=== PATIENT | female | born 1955 | race Caucasian/White ===

== ENCOUNTER → 2017-05-19 | Outpatient (CLI) | payer BC ==
[~2017-05-19] MED LIST: ASPI-496 PO; BIFI4CAP PO; CALC-332 PO; CALC625T23 PO; DIHY1SPR NS; MULT-706 PO; PROM25SU34 PO; TIZA2CAP2 PO; UBID100C41 PO; VITA150T PO
== END | disposition home or self-care (01) ==
LOC: STAR 11:21
PROVIDERS: ATTEND Thoracic Surgery (Cardiothoracic Vascular Surgery)
DX: Z01.818 Encounter for other preprocedural examination (principal); R94.31 Abnormal electrocardiogram [ECG] [EKG]; K44.9 Diaphragmatic hernia without obstruction or gangrene; K21.9 Gastro-esophageal reflux disease without esophagitis; M19.90 Unspecified osteoarthritis, unspecified site
CPT/HCPCS: 93005

== ENCOUNTER 2017-06-08 06:07 | Observation (INO) | payer BC ==
[~2017-06-08] VITALS: Ht 163.8 cm; Wt 79.7 kg
[2017-06-08] MEDS ORDERED: LIDOCAINE 1%, 2ML ONE (06:44)
[2017-06-08] MEDS ORDERED: KETAMINE 10 MG/ML, 20ML ONE (06:57)
[2017-06-08] MEDS ORDERED: MIDAZOLAM 1 MG/ML, 2ML ONE (06:58)
[2017-06-08] MEDS ORDERED: FENTANYL PF 100 MCG/2ML ONE ×4 (06:58→10:14)
[2017-06-08] MEDS ORDERED: PROPOFOL 10 MG/ML, 20ML ONE (06:59)
[2017-06-08] MEDS ORDERED: DEXAMETHASONE 4 MG/ML, 1ML ONE ×2 (07:00)
[2017-06-08] MEDS ORDERED: SUCCINYLCHOLINE 20 MG/ML, 10ML ONE (07:00)
[2017-06-08] MEDS ORDERED: CEFAZOLIN 1,000 MG ONE ×2 (07:00)
[2017-06-08] MEDS ORDERED: ONDANSETRON 2MG/ML, 2ML ONE ×2 (07:00)
[2017-06-08] MEDS ORDERED: ROCURONIUM 10MG/ML,5ML ONE (07:00)
[2017-06-08] MEDS ORDERED: LACTATED RINGERS 1,000 ML IV SCH (07:04)
[2017-06-08] MEDS ORDERED: OXYcodone 5 MG/5 ML ORAL.SOL UDC PO PRN (07:30)
[2017-06-08] MEDS ORDERED: METOCLOPRAMIDE 5 MG/ML, 2ML IV PRN (07:30)
[2017-06-08] MEDS ORDERED: LIDOCAINE 1%, 2ML SQ PRN (07:30)
[2017-06-08] MEDS ORDERED: hydrALAzine 20 MG/ML, 1ML IV PRN ×2 (07:30→10:00)
[2017-06-08] MEDS ORDERED: MIDAZOLAM 1 MG/ML, 2ML IV PRN (07:30)
[2017-06-08] MEDS ORDERED: PROMETHAZINE 25 MG/ML, 1ML IV PRN (07:30)
[2017-06-08] MEDS ORDERED: ACETAMINOPHEN 325 MG TABLET PO PRN (07:30)
[2017-06-08] MEDS ORDERED: MEPERIDINE/PF 25MG/0.5ML IVPush PRN (07:30)
[2017-06-08] MEDS ORDERED: LABETALOL 5MG/ML, 20ML IV PRN (07:30)
[2017-06-08] MEDS ORDERED: ALBUTEROL SULFATE 2.5 MG/3 ML NPPB PRN (07:30)
[2017-06-08] MEDS ORDERED: EPHEDRINE 50 MG/ML, 1ML ONE (08:26)
[2017-06-08] MEDS ORDERED: GLYCOPYRROLATE 0.4 MG/2 ML, 2ML ONE (08:28)
[2017-06-08] MEDS ORDERED: KETOROLAC 30 MG/1 ML ONE ×2 (08:32→10:54)
[2017-06-08] MEDS ORDERED: METOCLOPRAMIDE 5 MG/ML, 2ML ONE (09:05)
[2017-06-08] MEDS: LACTATED RINGERS 1,000 ML IV SCH ×3 (09:40→23:57)
[2017-06-08] MEDS ORDERED: DIPHENHYDRAMINE 50 MG/ML, 1ML IV PRN (10:00)
[2017-06-08] MEDS ORDERED: HYDROcodone/APAP 7.5-325MG/15ML UDC PO PRN (10:00)
[2017-06-08] MEDS ORDERED: PROMETHAZINE 25 MG/ML, 1ML IM PRN (10:00)
[2017-06-08] MEDS ORDERED: SCOPOLAMINE PATCH, 1MG PATCH.TD72 TD ONE ×2 (10:00→10:05)
[2017-06-08] MEDS ORDERED: ENALAPRILAT 1.25 MG/ML, 2ML IV PRN (10:00)
[2017-06-08] MEDS ORDERED: PROMETHAZINE 12.5 MG SUPP PR PRN (10:00)
[2017-06-08] MEDS ORDERED: MORPHINE SULFATE 4 MG/ML, 1ML IV PRN (10:00)
[2017-06-08] MEDS ORDERED: OXYcodone 5 MG/5 ML ORAL.SOL UDC ONE (10:06)
[2017-06-08] MEDS ORDERED: HYDROmorphone 1 MG/ML, 1ML ONE (10:14)
[2017-06-08] MEDS: FENTANYL PF 100 MCG/2ML IV PRN ×2 (10:17→10:52)
[2017-06-08] MEDS: HYDROmorphone 1 MG/ML, 1ML IV PRN ×2 (10:25→10:52)
[2017-06-08 11:45] VITALS: BP 110/61
[2017-06-08 12:30] VITALS: BP 103/61
[2017-06-08 14:30] VITALS: BP 101/83
[2017-06-08] MEDS: CEFAZOLIN PMX 2GM/50ML 50 ML IVPB SCH ×2 (16:21→23:57)
[2017-06-08] MEDS: FAMOTIDINE 20 MG/2 ML IV SCH (16:22)
[2017-06-08] MEDS: KETOROLAC 30 MG/1 ML IVPush PRN (17:33)
[2017-06-08 21:21] VITALS: BP 106/62
[2017-06-08] MEDS: LORazepam 2 MG/ML, 1ML IV PRN ×2 (22:03→23:30)
[2017-06-09 00:26] VITALS: BP 106/61
[2017-06-09 03:48] VITALS: BP 100/55
[2017-06-09] MEDS: FAMOTIDINE 20 MG/2 ML IV SCH (04:09)
[2017-06-09 07:15] VITALS: BP 101/63
[2017-06-09] MEDS ORDERED: ENOXAPARIN 40 MG/0.4 ML SQ SCH (09:00)
[2017-06-09] MEDS: LACTATED RINGERS 1,000 ML IV SCH (09:40)
[2017-06-09] MEDS: KETOROLAC 30 MG/1 ML IVPush PRN (10:01)
[2017-06-09 10:04] VITALS: BP 103/60
== END 2017-06-09 11:04 | disposition home or self-care (01) ==
LOC: OUT 06:07 → 4NOR 09:40 → ORIP 09:40 → UNDOADMOB 09:40 → ORIP 11:48 → 4NOR 11:48 → DCLOUNGE 06-09 10:47
PROVIDERS: ADMIT Thoracic Surgery (Cardiothoracic Vascular Surgery); ATTEND Thoracic Surgery (Cardiothoracic Vascular Surgery)
DX: K44.9 Diaphragmatic hernia without obstruction or gangrene (principal); K42.9 Umbilical hernia without obstruction or gangrene; K21.9 Gastro-esophageal reflux disease without esophagitis; G43.909 Migraine, unspecified, not intractable, without status migrainosus; R06.02 Shortness of breath; R13.10 Dysphagia, unspecified; M19.90 Unspecified osteoarthritis, unspecified site; Z83.3 Family history of diabetes mellitus; Z83.42 Family history of familial hypercholesterolemia; Z83.49 Family history of other endocrine, nutritional and metabolic diseases
CPT/HCPCS: 43282; 49585; 96365; 96372; 96375; 96376; C1781; G0378; J0171; J0330; J0690; J1100; J1170; J1650; J1885; J2060; J2250; J2550; J2704; J2765; J3010; J3490; J7120; Q4116; J2405; S0028